=== PATIENT | female | born 1970 | race African-American/Black ===

== ENCOUNTER 2022-03-17 11:34 | Day surgery (SDC) | payer BC ==
[2022-03-15 09:03] VITALS: BMI 35.9
[2022-03-17 16:04] VITALS: TEMP 97.8
[2022-03-17 16:06] VITALS: BP 132/78; PULSE 80
== END 2022-03-17 14:15 | disposition home or self-care (01) ==
LOC: FASU-ENDO 11:34
PROVIDERS: ATTEND Internal Medicine Gastroenterology
PROC: 0DB68ZX Excision of Stomach, Via Natural or Artificial Opening Endoscopic, Diagnostic (ICD-10-PCS; 2022-03-17)
PROC: 0DB48ZX Excision of Esophagogastric Junction, Via Natural or Artificial Opening Endoscopic, Diagnostic (ICD-10-PCS; 2022-03-17)
PROC: 0DB98ZX Excision of Duodenum, Via Natural or Artificial Opening Endoscopic, Diagnostic (ICD-10-PCS; principal; 2022-03-17 13:01)
DX: K29.50 Unspecified chronic gastritis without bleeding (principal); B96.81 Helicobacter pylori [H. pylori] as the cause of diseases classified elsewhere; K20.90 Esophagitis, unspecified without bleeding; R10.13 Epigastric pain
CPT/HCPCS: 82962; 84703; 88305-TC; 88342-TC

== ENCOUNTER 2022-04-21 10:03 | Day surgery (SDC) | payer BC ==
[2022-04-19 12:38] VITALS: BMI 35.2
[2022-04-21] MEDS ORDERED: PROPOFOL 20 ML ONE ×2 (10:24)
[2022-04-21] MEDS ORDERED: LIDOCAINE HCL/PF 2% SDV 5ML VIAL ONE (10:24)
[2022-04-21 10:41] VITALS: TEMP 97.8
[2022-04-21 12:43] VITALS: BP 131/78; PULSE 76
== END 2022-04-21 12:50 | disposition home or self-care (01) ==
LOC: FASU-ENDO 10:03
PROVIDERS: ATTEND Internal Medicine Gastroenterology
PROC: 0DBP8ZX Excision of Rectum, Via Natural or Artificial Opening Endoscopic, Diagnostic (ICD-10-PCS; principal; 2022-04-21 11:18)
DX: Z12.11 Encounter for screening for malignant neoplasm of colon (principal); K62.1 Rectal polyp; K64.1 Second degree hemorrhoids
CPT/HCPCS: 82962; 84703; 88305-TC